=== PATIENT | female | born 1955 | race Caucasian/White ===

== ENCOUNTER 2020-04-03 15:36 | Outpatient (REF) | payer MEDICARE, SELFPAY | END 2020-04-03 15:37 | disposition home or self-care (01) | LOC: HO.LNP 15:36 | PROVIDERS: Visit Provider Internal Medicine | DX: Z20.822 Contact with and (suspected) exposure to COVID-19 (principal) | CPT/HCPCS: U0003 ==

== ENCOUNTER 2020-05-04 15:04 | Outpatient (REF) | payer MEDICARE, SELFPAY | END 2020-05-04 15:05 | disposition home or self-care (01) | LOC: HO.LNP 15:04 | PROVIDERS: PCP Internal Medicine; Visit Provider Surgery | DX: L98.9 Disorder of the skin and subcutaneous tissue, unspecified (principal) | CPT/HCPCS: 11421; 99202 ==

== ENCOUNTER 2020-05-05 13:07 | Outpatient (REF) | payer MEDICARE, SELFPAY | END 2020-05-05 13:08 | disposition home or self-care (01) | LOC: HO.LAB 13:07 | PROVIDERS: Visit Provider Surgery | DX: L98.9 Disorder of the skin and subcutaneous tissue, unspecified (principal) | CPT/HCPCS: 88305 ==

== ENCOUNTER → 2020-05-18 16:00 | Outpatient (BNVA) | payer MEDICARE, SELFPAY | PROVIDERS: PCP Internal Medicine; Visit Provider Surgery | DX: L98.9 Disorder of the skin and subcutaneous tissue, unspecified (principal) | CPT/HCPCS: 99212 ==

== ENCOUNTER 2022-01-18 12:20 | Outpatient (REF) | payer MEDICARE, SELFPAY ==
[2022-01-18 13:37] LABS: MANUAL DIFF FLAG NO
[2022-01-18 13:43] LABS: Basophils Absolute Auto 0.1 X10*3/uL (0.0-0.2); Basophils Percent Auto 1.3 % (0-2); Eosinophils Absolute Auto 0.1 X10*3/uL (0.0-0.4); Eosinophils Percent Auto 1.9 % (0-4); Hematocrit 42.4 % (37.0-47.0); Hemoglobin 13.5 g/dl (12.0-16.0); Imm Gran Abs Auto 0.01 X10*3/uL (0.00-0.03); Imm Gran Pct Auto 0.2 % (0.0-0.4); Lymphocytes Absolute Auto 1.8 X10*3/uL (1.2-4.9); Lymphocytes Percent Auto 34.3 % (20-40); Mean Corpuscular HGB Conc 31.8 g/dl (31.0-35.0); Mean Corpuscular Hemoglobin 28.8 pg (27.0-33.0); Mean Corpuscular Volume 90.4 fL (80.0-98.0); Mean Platelet Volume 9.7 fL (9.4-12.3); Monocytes Absolute Auto 0.4 X10*3/uL (0.1-1.2); Monocytes Percent Auto 7.8 % (2-11); Neutrophils Absolute Auto 2.9 x10*3/uL (2.0-8.3); Neutrophils Percent Auto 54.5 % (45-73); Platelet Count 277 X10*3/uL (160-400); Red Blood Count 4.69 X10*6/uL (4.20-5.50); Red Cell Distribution Width 13.2 % (11.0-16.0); White Blood Count 5.3 X10*3/uL (4.8-10.8)
[2022-01-18 14:49] LABS: Alanine Aminotransferase 10 U/L (0-31); Albumin Level 4.4 g/dL (3.5-5.0); Alkaline Phosphatase 99 U/L (39-117); Anion Gap 15 (12-20); Aspartate Amino Transferase 16 U/L (5-31); Bilirubin Total 0.5 mg/dL (0.0-1.0); Blood Urea Nitrogen 17 mg/dL (9-16); Calcium 9.8 mg/dL (8.4-10.2); Carbon Dioxide 28 mmol/L (22-29); Chloride 102 mmol/L (96-108); Cholesterol 222 mg/dL; Estimated Glomerular Filt Rate > 60; Glucose Fasting 90 mg/dL (60-99); HDL Cholesterol 78 mg/dL; LDL Cholesterol Calculated 133 mg/dl; Potassium 4.3 mmol/L (3.3-5.1); Sodium 141 mmol/L (135-145); Total Protein 7.3 g/dL (6.5-8.0); Triglycerides 59 mg/dL
[2022-01-18 14:58] LABS: Thyroid Stimulating Hormone 1.35 uIU/mL (0.32-4.0); Vitamin D 25-OH Total 20.6 ng/mL (>30)
[2022-01-21 21:35] LABS: Lyme Abs Screen <0.90 index
== END 2022-01-18 12:21 | disposition home or self-care (01) ==
LOC: HO.10HDL 12:20
PROVIDERS: Visit Provider Internal Medicine
DX: Z00.00 Encounter for general adult medical examination without abnormal findings (principal); E55.9 Vitamin D deficiency, unspecified
CPT/HCPCS: 36415; 80053; 80061; 82306; 84443; 85025; 86617; 86618

== ENCOUNTER 2022-03-20 16:31 | Outpatient (REF) | payer MEDICARE, SELFPAY ==
--- NOTE | ~2022-03-20 | XR_ITS ---
EXAMINATION: XR PELVIS CLINICAL INFORMATION: Pain. COMPARISON: No similar priors. TECHNIQUE: AP view of the pelvis. FINDINGS: No acute fractures or malalignment. The femoral heads are well-seated in their respective acetabula. There is symmetric increased sclerosis of the mid and lower thirds of the SI joints. Pubic symphysis is maintained. Calcifications in the left upper pelvis could represent fibroids. XR/XR pelvis 1-2V IMPRESSION: 1. No acute fractures or malalignment. 2. Symmetric increased sclerosis of the SI joints which could be seen in the setting of sacroiliitis. 3. Nonspecific calcifications in the pelvis could represent fibroids. Recommend correlation with a pelvic ultrasound.
[2022-03-20 16:48] LABS: MANUAL DIFF FLAG NO
[2022-03-20 17:03] LABS: Basophils Absolute Auto 0.1 X10*3/uL (0.0-0.2); Basophils Percent Auto 1.6 % (0-2); Eosinophils Absolute Auto 0.2 X10*3/uL (0.0-0.4); Eosinophils Percent Auto 3.4 % (0-4); Hematocrit 41.2 % (37.0-47.0); Hemoglobin 13.4 g/dl (12.0-16.0); Imm Gran Abs Auto 0.01 X10*3/uL (0.00-0.03); Imm Gran Pct Auto 0.2 % (0.0-0.4); Lymphocytes Absolute Auto 1.9 X10*3/uL (1.2-4.9); Lymphocytes Percent Auto 33.3 % (20-40); Mean Corpuscular HGB Conc 32.5 g/dl (31.0-35.0); Mean Corpuscular Hemoglobin 29.6 pg (27.0-33.0); Mean Corpuscular Volume 90.9 fL (80.0-98.0); Mean Platelet Volume 9.8 fL (9.4-12.3); Monocytes Absolute Auto 0.6 X10*3/uL (0.1-1.2); Monocytes Percent Auto 11.4 % (2-11); Neutrophils Absolute Auto 2.8 x10*3/uL (2.0-8.3); Neutrophils Percent Auto 50.1 % (45-73); Platelet Count 268 X10*3/uL (160-400); Red Blood Count 4.53 X10*6/uL (4.20-5.50); Red Cell Distribution Width 12.9 % (11.0-16.0); White Blood Count 5.6 X10*3/uL (4.8-10.8)
[2022-03-20 17:43] LABS: Anion Gap 11 (12-20); Blood Urea Nitrogen 20 mg/dL (9-16); C Reactive Protein 0.19 mg/dL (< or = 0.50); Calcium 9.6 mg/dL (8.4-10.2); Carbon Dioxide 29 mmol/L (22-29); Chloride 104 mmol/L (96-108); Estimated Glomerular Filt Rate > 60; Glucose Random 103 mg/dL (60-115); Potassium 4.7 mmol/L (3.3-5.1); Sodium 139 mmol/L (135-145)
[2022-03-20 17:56] LABS: Appearance Urine Turbid; Color Urine Yellow; Glucose Urine UA Negative (Negative); Leukocyte Esterase Urine Large (3+) (Negative); Nitrite Urine Negative (Negative); Specific Gravity - Urine 1.025 (1.005-1.025); UMIC TRIGGER UA YES; Urine Blood Moderate (2+) (Negative); Urine Ketones Negative (Negative); Urine Protein Trace mg/dL (Neg-Trace)
[2022-03-20 18:13] LABS: Bacteria Urine 4+ (None Seen); Hyaline Casts Urine 0-2 /LPF (0-2); Squamous Epithelial Cell Urine >20 /HPF (0-2); WBC Urine >50 /HPF (0-5)
== END 2022-03-20 16:32 | disposition home or self-care (01) ==
LOC: HO.XRAY 16:31
PROVIDERS: PCP Internal Medicine; Visit Provider Internal Medicine
DX: R10.9 Unspecified abdominal pain (principal); R10.2 Pelvic and perineal pain
CPT/HCPCS: 36415; 72170; 80048; 81001; 85025; 86140

== ENCOUNTER 2023-06-29 09:27 | Emergency (ER) | payer MEDICARE, SELFPAY ==
--- NOTE | ~2023-06-29 | XR_ITS ---
EXAMINATION: XR FOOT, LEFT CLINICAL INFORMATION: Pain. COMPARISON: None available. TECHNIQUE: AP, lateral, and oblique views of the left foot. FINDINGS: Nondisplaced comminuted fracture at the base of the fifth metatarsal. Moderate degenerative osteoarthrosis of the first MTP joint with mild hallux valgus deformity. Small plantar calcaneal spurs. Diffuse soft tissue swelling. XR/XR foot LT min 3V IMPRESSION: 1. Nondisplaced comminuted fracture at the base of the fifth metatarsal. 2. 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
--- NOTE | ~2023-06-29 | XR_ITS ---
EXAMINATION: XR ANKLE, RIGHT CLINICAL INFORMATION: Fall, swelling. COMPARISON: None available. TECHNIQUE: AP, lateral, and mortise views of the right ankle. FINDINGS: Soft tissue swelling adjacent to the lateral malleolus with an obliquely oriented mildly displaced distal fibular fracture. No additional fractures. No subluxation. Plantar calcaneal spurs. XR/XR ankle RT min 3V IMPRESSION: Mildly displaced distal fibular fracture with adjacent soft tissue swelling.
[2023-06-29 09:42] VITALS: BP 159/86; PULSE 55; RESP 18; TEMP 36.6; O2SAT 98; BMI 30.9
--- NOTE | 2023-06-29 11:55 | ED.LOWEXIN ---
HPI - Extremity Injury (Lower) General Chief Complaint: Extremity Injury, Lower Stated Complaint: R ankle pain Time Seen by Provider: 06/29/23 10:10 Source: patient, family and RN notes reviewed Mode of arrival: ambulatory Limitations: no limitations History of Present Illness HPI Narrative: This is a 68-year-old female, with no known medical problems, who presents emergency department accompanied by her sister with complaints of right ankle pain and left foot pain status post mechanical fall which occurred at 1:30 a.m. this morning. Patient states that she was walking outside of her house and tripped over a stone and rolled both of her ankles. She denies hitting her head or loss of consciousness. She was able to weightbear on both of her feet after the fall. She states that she has had increased pain and swelling in her right ankle and left foot. She took ibuprofen prior to arrival which provided her with good relief. She denies any headaches, dizziness, blurred vision chest pain, shortness on breath, abdominal pain, nausea, vomiting or diarrhea. She has not on blood thinners. No other complaints or concerns at this time. MD complaint: ankle injury and foot injury Onset (ago): hour(s) Place: home Severity: moderate Relieving factors: NSAID Exacerbating factors: weight bearing, movement and palpation Context: fall Associated symptoms: swelling and able to partially bear weight Other symptoms: none Treatments prior to arrival: NSAIDS Related Data Previous Rx's ?Medication ?Instructions ?Recorded acetaminophen 500 mg tablet 500 mg PO Q6H PRN pain #30 tabs 06/29/23 (Tylenol Extra Strength) ibuprofen 600 mg tablet 600 mg PO Q6H PRN pain #30 tabs 06/29/23 Allergies Allergy/AdvReac Type Severity Reaction Status Date / Time No Known Allergies Allergy Verified 06/29/23 09:46 Review of Systems Review of Systems: Yes all other systems are reviewed and are negative Constitutional: Constitutional: Reports as per [facility] Past Medical History Medical History Skin lesion of neck Surgical History History of removal of cyst Social History Social History Alcohol intake: never Advance Directives: No Advance Directives Information Provided: Yes Physical Exam Vital Signs: Vital Signs: Last Vital Signs Temp 98.6 F 06/29/23 15:08 Pulse 77 06/29/23 15:08 Resp 18 06/29/23 15:08 BP 170/68 H 06/29/23 15:08 Pulse Ox 98 06/29/23 15:05 O2 Del Method Room Air 06/29/23 15:05 BMI result Body Mass Index 30.9 Const: General: cooperative, comfortable and no acute distress Orientation/consciousness: patient oriented x3 Limitations: no limitations HEENT: Head: Yes normal to inspection, Yes normocephalic and Yes atraumatic Ears: hearing grossly normal bilaterally General nose exam: Normal external nose present Face and sinus: Yes normal facial exam Mouth: Normal oral and palatal mucosa present, oropharynx normal and moist mucous membranes Throat: Yes posterior oropharynx normal Eyes: General: appearance normal, both eyes and all related structures Eyelids: Yes eyelids normal Conjunctivae: conjunctivae normal Sclerae: sclerae normal Pupils: Equal, round and reactive pupils present EOM: EOMs intact bilaterally Neck: Neck: Yes normal visual inspection, Yes full ROM and Yes no lymphadenopathy Lymphatic: no lymphadenopathy noted Chest: Chest palpation & inspection: normal inspection of the chest Resp: Effort & Inspection: normal respiratory effort and able to speak in complete sentences Auscultation: clear to auscultation bilaterally, no crackles, no rales, no rhonchi and no wheezes Cardio: Rate: regular rate Rhythm: regular rhythm Heart sounds: S1 normal heart sound present and S2 normal heart sound present GI: Inspection: Yes normal to inspection Skin: General skin exam: no rashes or lesions noted Trauma: no lacerations or abrasions Wounds: no wounds Neuro: General: patient oriented x3 and moves all extremities Cranial nerves: Yes Equal, round and reactive pupils present Extrem: Other: Right ankle lateral malleolus with moderate edema and tenderness to palpation. Full range of motion of the right ankle without difficulty. Strong DP pulse. Left lateral ankle with superficial abrasion noted, left dorsum of the foot with moderate edema and ecchymosis seen, with tenderness palpation along the left 5th metatarsal head. Strong DP pulse General: Yes normal to inspection Right upper extremity: normal to inspection Left upper extremity: normal to inspection Right lower extremity: normal to inspection Left lower extremity: normal to inspection Course Reevaluation(s) Reevaluation #1: X-ray revealing mildly displaced distal fibular fracture with adjacent soft tissue swelling. Pending left foot x-ray at this time. Time: 11:59 Reevaluation #2: Left foot x-ray returns revealing a left 5th nondisplaced comminuted fracture. Case discussed with orthopedic PA, Ivonne Veronica, who recommends postoperative shoe on the left as well as splinting on the right. Patient should be nonweightbearing on the right. I discussed these findings with patient. I advised patient that given ambulation status is going to be severely compromised as she has fractures in her left foot as well as her right ankle. I discussed at length that patient should stay overnight to be medically evaluated by the physical therapist in the morning to see if she qualifies for out home services and or acute rehab. Patient adamantly refuses, states that she needs to get home to her job as well as take care of her dog who just had surgery last week. I discussed that she can not be weight-bearing on the right. She was given crutches in the emergency department and appears to be stable. I given patient return precautions. She will follow-up with orthopedics outpatient, advised to call tomorrow to make an appointment. Patient stable for discharge. Medical Decision Making Medical Decision Making MDM Narrative: This is a 68-year-old female, with no known medical problems, who presents emergency department complaints of right ankle and left foot pain status post mechanical fall which occurred at 1:30 a.m. this morning. Patient had no head strike or LOC. She has not on blood thinners. She was able to weightbear on both of her ankles however states that she has had increased pain since. Patient has tenderness palpation along the right lateral malleolus as well as left 5th metatarsal head. Differential diagnoses include fracture, sprain, strain, contusion. Plan: X-rays, patient declines pain management at this time. Differential Diagnosis Differential Diagnoses: The differential diagnosis associated with the presentation includes See above Admission/Observation Consideration of admission/observation: Escalation of care including admission/observation considered Escalation of care including admission/observation considered however given workup today not warranted at this time. Consult Healthcare Provider Management of the patient was discussed with: Stucco Mason Ivonne Veronica, orthopedic PA Radiology Impression Discussion of test interpretation with radiology: I have reviewed the radiologist's reading. Radiologist Impression: EXAMINATION: XR ANKLE, RIGHT CLINICAL INFORMATION: Fall, swelling. COMPARISON: None available. TECHNIQUE: AP, lateral, and mortise views of the right ankle. FINDINGS: Soft tissue swelling adjacent to the lateral malleolus with an obliquely oriented mildly displaced distal fibular fracture. No additional fractures. No subluxation. Plantar calcaneal spurs. XR/XR ankle RT min 3V IMPRESSION: Mildly displaced distal fibular fracture with adjacent soft tissue swelling. Dictated By: Radha Krishnan External Record Review External record reviewed: Inpatient record, Office record, Outpatient record, Prior outpatient labs, Prior outpatient radiology, Primary care record and Outside ED record Procedures Orthopedic Splinting/Casting Injury #1: Side: right Lower Extremity Injury Location: lower leg and ankle Lower Extremity Immobilizer: posterior splint Other Orthopedic Equipment: crutches Injury #2: Side: left Lower Extremity Injury Location: foot Lower Extremity Immobilizer: post-op shoe Discharge Plan Discharge Clinical Impression: Fracture of fifth metatarsal bone, Fracture of right fibula Patient Disposition: Home, Self-Care Instructions: Ankle Fracture (ED), Crutch Instructions (ED), Foot Fracture in Adults (ED) Additional Instructions: Your seen in the emergency department after a fall. Your right ankle is fractured. Your left 5th metatarsal is also broken. You need to stay in your orthopedic splint until you follow-up with Orthopedics. Do not get splint wet. You can not weightbear on her right foot and leg. Your left foot is also fractured, stay in the postoperative shoe. You may weightbear on her left foot. Alternate between ibuprofen and Tylenol as needed for pain. If any new or worsening symptoms occur including but not limited to chest pain, shortness of breath, worsening pain, swelling, please return for re-evaluation. Prescriptions: New ibuprofen 600 mg tablet 600 mg PO Q6H PRN (Reason: pain) Qty: 30 0RF acetaminophen [Tylenol Extra Strength] 500 mg tablet 500 mg PO Q6H PRN (Reason: pain) Qty: 30 0RF [place] [facility] [place] [facility] [place] Group] Interventions: ED Discharge Assessment Last Done: 06/29/23 15:08 Discharge Date/Time: 06/29/23 15:37 Print Language: Citizen Of [place]
[2023-06-29 15:05] VITALS: BP 170/68; PULSE 77; RESP 18; TEMP 37; O2SAT 98
[2023-06-29 15:08] VITALS: BP 170/68; PULSE 77; RESP 18; TEMP 37
== END 2023-06-29 15:37 | disposition home or self-care (01) ==
PROVIDERS: Emergency Provider Student in an Organized Health Care Education/Training Program; PCP Internal Medicine
DX: S92.352A Displaced fracture of fifth metatarsal bone, left foot, initial encounter for closed fracture (principal); S82.401A Unspecified fracture of shaft of right fibula, initial encounter for closed fracture; M25.571 Pain in right ankle and joints of right foot; M79.672 Pain in left foot; W01.10XA Fall on same level from slipping, tripping and stumbling with subsequent striking against unspecified object, initial encounter; Y93.9 Activity, unspecified; Y92.9 Unspecified place or not applicable; Y99.8 Other external cause status
CPT/HCPCS: 73610; 73630; 99283; 99284

== ENCOUNTER 2023-09-23 13:03 | Emergency (ER) | payer MEDICARE, SELFPAY ==
--- NOTE | ~2023-09-23 | XR_ITS ---
EXAMINATION: XR HAND, LEFT CLINICAL INFORMATION: Third digit injury. Cutting middle finger on wu trimmers. Pain. COMPARISON: None available. TECHNIQUE: PA, lateral, and oblique views of the left hand. FINDINGS: Bones are osteopenic. No fracture or malalignment. Moderate osteoarthritis the first CMC and triscaphe joints. Minimal osteoarthritis in the interphalangeal joints. There is a soft tissue injury at the long finger around the distal phalanx. No subcutaneous gas. No radiodense foreign bodies. No associated osseous injuries. XR/XR hand LT 2V IMPRESSION: Soft tissue injury at the long finger distal phalanx. No associated osseous injuries. No radiodense foreign bodies.
[2023-09-23 13:11] VITALS: BP 153/78; PULSE 87; RESP 18; TEMP 36.8; O2SAT 98; BMI 30.6
--- NOTE | 2023-09-23 13:11 | ED_ITS ---
HPI - General Adult General Chief complaint: Wound/Laceration Stated complaint: L finger lac Time Seen by Provider: 09/23/23 14:37 Related Data Previous Rx's ?Medication ?Instructions ?Recorded acetaminophen 500 mg tablet 500 mg PO Q6H PRN pain #30 tabs 06/29/23 (Tylenol Extra Strength) ibuprofen 600 mg tablet 600 mg PO Q6H PRN pain #30 tabs 06/29/23 Allergies Allergy/AdvReac Type Severity Reaction Status Date / Time No Known Allergies Allergy Verified 09/23/23 13:14 [facility] Past Medical History Medical History Skin lesion of neck Surgical History History of removal of cyst Social History Social History Alcohol intake: never Advance Directives: No Advance Directives Information Provided: No Do you have a plan to hurt others: No Plan Physical Exam ED Vital Signs: Vital Signs - 24 hr 09/23/23 13:11 09/23/23 16:25 09/23/23 16:41 Temperature 98.2 F 98.3 F 98.3 F Pulse Rate 87 80 80 Respiratory Rate 18 20 20 Blood Pressure 153/78 H 148/76 H 148/76 H Pulse Oximetry 98 98 98 Oxygen Delivery Method Room Air Room Air Room Air BMI result Body Mass Index 30.6 Course Course Course Narrative: This is a rapid medical exam performed by Marcio West NP: Additional HPI, ROS, PE not included below will be deferred to primary provider. Patient is a 68-year-old right hand dominant female presenting to the ED with complaint of laceration to left middle finger. Accidentally cut self with hedge clippers [employer]. V-shaped laceration to distal tip of left 3rd finger on palmar surface, no nail involvement. Patient is going to call Dr. Pringle's office to confirm last Tdap. Plan: f/u on Tdap, will need repair Medications Administered Discontinued Medications Generic Name Dose Route Start Last Admin Trade Name Freq PRN Reason Stop Dose Admin Bacitracin 1 appl 09/23/23 15:51 09/23/23 16:28 Bacitracin Oint 0.9 Gm Packet TOPICAL 09/23/23 15:52 1 appl ONCE ONE Administration Protocol Diphtheria/Tetanus/Acell Pertussis 0.5 ml 09/23/23 14:43 09/23/23 14:58 Diphth,Pertus(Acell),Tet Adult 0.5 Ml Syringe IM 09/23/23 14:44 0.5 ml .ONCE ONE Administration Discharge Plan Discharge Clinical Impression: Abrasion Patient Disposition: Home, Self-Care Instructions: Abrasion (ED) Additional Instructions: You were seen and evaluated in the emergency room. Your wound was cleaned and repaired with steri-strips. Please keep your wound dry for 24 hours. After 24 hours, you may wash your wound daily with mild soap and water. Please be very gentle when cleaning. After cleaning, please apply Bacitracin (or any triple antibiotic ointment such as Neosporin). Please do this 2-3x per day. When your steri-strips begin to come off, please begin to apply a normal bandage over your wound. Please allow your steri-strips to come off naturally. Please follow-up with your primary care doctor in the next 5-7 days. ? Please return to the emergency room if you develop any new injuries or concerns. Prescriptions: No Action ibuprofen 600 mg tablet 600 mg PO Q6H PRN (Reason: pain) Qty: 30 0RF acetaminophen [Tylenol Extra Strength] 500 mg tablet 500 mg PO Q6H PRN (Reason: pain) Qty: 30 0RF Interventions: ED Discharge Assessment Last Done: 09/23/23 16:41 Discharge Date/Time: 09/23/23 16:41 Print Language: Serbian
--- NOTE | 2023-09-23 14:44 | ED_ITS ---
HPI - General Adult General Chief complaint: Wound/Laceration Stated complaint: L finger lac Time Seen by Provider: 09/23/23 14:37 Source: patient Mode of arrival: ambulatory Limitations: no limitations History of Present Illness HPI narrative: This is a 68-year-old woman with no known medical problems who presents for evaluation of finger injury. Patient reports that she was using hedge clippers prior to arrival and states that she accidentally after got a cut on a stick/branch or the clipper itself. She states that her last tetanus shot was in 2018. She states it was bleeding quite a bit initially, but states that the bleeding has slowed down. She states no other injuries or complaints. Related Data Previous Rx's ?Medication ?Instructions ?Recorded acetaminophen 500 mg tablet 500 mg PO Q6H PRN pain #30 tabs 06/29/23 (Tylenol Extra Strength) ibuprofen 600 mg tablet 600 mg PO Q6H PRN pain #30 tabs 06/29/23 Allergies Allergy/AdvReac Type Severity Reaction Status Date / Time No Known Allergies Allergy Verified 09/23/23 13:14 Review of Systems Review of Systems: ROS as per HPI [facility] Past Medical History Medical History Skin lesion of neck Surgical History History of removal of cyst Social History Social History Alcohol intake: never Advance Directives: No Advance Directives Information Provided: No Do you have a plan to hurt others: No Plan Physical Exam ED Vital Signs: Vital Signs - 24 hr 09/23/23 13:11 09/23/23 16:25 09/23/23 16:41 Temperature 98.2 F 98.3 F 98.3 F Pulse Rate 87 80 80 Respiratory Rate 18 20 20 Blood Pressure 153/78 H 148/76 H 148/76 H Pulse Oximetry 98 98 98 Oxygen Delivery Method Room Air Room Air Room Air BMI result Body Mass Index 30.6 Gen: NAD, AOx3 HEENT: NCAT, EOMI, normal conjunctiva CV: RRR, 2+ bilateral radial pulses Pulm: CTAB, no increased work of breathing GI: Soft, NTND, no rebound, guarding or rigidity MSK: Intact motor function to left upper extremity radial/ulnar/median/anterior interosseous nerve, superficial irregular hemostatic abrasion to the palmar aspect of the distal left middle finger Neuro: Grossly non focal, sensation intact to light touch to bilateral upper extremity dermatomes C6-C8 Medications Administered Discontinued Medications Generic Name Dose Route Start Last Admin Trade Name Moiseq PRN Reason Stop Dose Admin Bacitracin 1 appl 09/23/23 15:51 09/23/23 16:28 Bacitracin Oint 0.9 Gm Packet TOPICAL 09/23/23 15:52 1 appl ONCE ONE Administration Protocol Diphtheria/Tetanus/Acell Pertussis 0.5 ml 09/23/23 14:43 09/23/23 14:58 Diphth,Pertus(Acell),Tet Adult 0.5 Ml Syringe IM 09/23/23 14:44 0.5 ml .ONCE ONE Administration Procedures Laceration Laceration 1: Site: hand Side (If applicable): left Size (cm): 1 Description: irregular Depth: simple, single layer Pre-repair: irrigated extensively Technique: other (steri strips x4) Medical Decision Making Medical Decision Making MDM Narrative: Differential diagnosis includes, but is not limited to abrasion, laceration, fracture, retained foreign body, contusion. Patient is afebrile and hemodynamically stable on room air. Exam is benign and reassuring. The affected extremity is neurovascularly intact. Patient's wound is hemostatic. Her wound is cleansed with hydrogen peroxide and saline. Considered use of Dermabond for closure, but wound is appropriate for closure with Steri-Strips which are applied. Bacitracin topical was applied by RN following application of Steri-Strips. Diagnostic imaging studies are unremarkable for any acute findings. On re-examination, patient is well-appearing and in no acute distress.?There is no indication for further emergent evaluation in this otherwise well-appearing patient as above. I discussed appropriate ongoing wound care at home. ?Patient is provided written and verbal instructions, educational materials, recommendations for outpatient follow-up, strict return precautions and teach back is performed. ?Patient states understanding and agreement with plan of care. ?Patient is discharged home in stable and improved condition. Admission/Observation Consideration of admission/observation: Escalation of care including admission/observation considered Independent Interpretation I performed an independent interpretation of an: Plain X-Ray Interpretation: X-ray does not demonstrate any acute fracture or foreign body Radiology Impression Discussion of test interpretation with radiology: I have reviewed the radiologist's reading. Radiologist Impression: IMPRESSION: Soft tissue injury at the long finger distal phalanx. No associated osseous injuries. No radiodense foreign bodies. Dictated By: Polo Webb MD Signed By: <Electronically signed by Polo Webb MD in OV> 09/23/23 0097 Discharge Plan Discharge Clinical Impression: Abrasion Patient Disposition: Home, Self-Care Instructions: Abrasion (ED) Additional Instructions: You were seen and evaluated in the emergency room. Your wound was cleaned and repaired with steri-strips. Please keep your wound dry for 24 hours. After 24 hours, you may wash your wound daily with mild soap and water. Please be very gentle when cleaning. After cleaning, please apply Bacitracin (or any triple antibiotic ointment such as Neosporin). Please do this 2-3x per day. When your steri-strips begin to come off, please begin to apply a normal bandage over your wound. Please allow your steri-strips to come off naturally. Please follow-up with your primary care doctor in the next 5-7 days. ? Please return to the emergency room if you develop any new injuries or concerns. Prescriptions: No Action ibuprofen 600 mg tablet 600 mg PO Q6H PRN (Reason: pain) Qty: 30 0RF acetaminophen [Tylenol Extra Strength] 500 mg tablet 500 mg PO Q6H PRN (Reason: pain) Qty: 30 0RF Interventions: ED Discharge Assessment Last Done: 09/23/23 16:41 Discharge Date/Time: 09/23/23 16:41 Print Language: Citizen Of [place]
[2023-09-23] MEDS: Diphth,Pertus(ACell),Tet Adult 0.5 ML SYRINGE IM (14:58)
[2023-09-23 16:25] VITALS: BP 148/76; PULSE 80; RESP 20; TEMP 36.8; O2SAT 98
[2023-09-23] MEDS: Bacitracin Oint 0.9 GM PACKET 1 APPL TOPICAL (16:28)
--- NOTE | 2023-09-23 16:40 | PC.NURSE ---
pts laceration was closed with steri strips and bacitracin dsd placed. no active bleeding noted, plan for discharge
[2023-09-23 16:41] VITALS: BP 148/76; PULSE 80; RESP 20; TEMP 36.8; O2SAT 98
== END 2023-09-23 16:41 | disposition home or self-care (01) ==
PROVIDERS: Emergency Provider Emergency Medicine; PCP Internal Medicine
DX: S61.213A Laceration without foreign body of left middle finger without damage to nail, initial encounter (principal); W45.8XXA Other foreign body or object entering through skin, initial encounter; Y93.9 Activity, unspecified; Y92.9 Unspecified place or not applicable; Y99.9 Unspecified external cause status; Z23 Encounter for immunization
CPT/HCPCS: 73120; 90471; 90715; 99282; 99284

== ENCOUNTER → 2023-10-17 08:30 | Outpatient (BNV) | payer MEDICARE, SELFPAY | PROVIDERS: PCP Internal Medicine; Visit Provider Radiology Diagnostic Radiology | DX: Z12.31 Encounter for screening mammogram for malignant neoplasm of breast (principal) | CPT/HCPCS: 77063; 77067 ==

== ENCOUNTER 2023-10-17 08:31 | Outpatient (REF) | payer MEDICARE, SELFPAY ==
--- NOTE | ~2023-10-17 | MM_ITS ---
EXAMINATION: BONE DENSITOMETRY CLINICAL INDICATION: Asymptomatic menopausal state. COMPARISON: Previous BD dated 09/16/2017 and baseline BD dated 07/02/2007. TECHNIQUE: Using a [employer] DXA System (software version: 13.1) manufactured by [facility], dual-energy x-ray absorptiometry was performed of the lumbar spine and left hip. The images are of good technical quality. Summary results are attached. FINDINGS: LEFT FEMUR, NECK: Current: BMD 0.867 g/cm2, Z-score -0.1, T-score -1.2, osteopenia. Prior: BMD 0.927 g/cm2. Baseline: BMD 1.008 g/cm2. LEFT FEMUR, TOTAL: Current: BMD 0.926 g/cm2, Z-score 0.2, T-score -0.6, normal, 5.3% decrease from previous, 8.4% decrease from baseline (<5% change is not significant). Prior: BMD 0.978 g/cm2. Baseline: BMD 1.011 g/cm2. AP SPINE L1-L4: Current: BMD 0.984 g/cm2, Z-score -0.8, T-score -1.6, osteopenia, 0.2% increase from previous, 8.6% decrease from baseline (<5% change is not significant). Prior: BMD 0.982 g/cm2. Baseline: BMD 1.076 g/cm2. IDENTIFIED RISK FACTORS: Menopause, fracture. HISTORY OF FRACTURE: Wrist. Other. MEDICATIONS: Calcium supplements or multivitamin, vitamin D. MM/XR DEXA axial skeleton IMPRESSION: 1. DIAGNOSIS: Osteopenia based on the lowest T-score value of -1.6 in the lumbar spine applying World Health Organization criteria. 2. 10-YEAR FRACTURE RISK PREDICTION, FRAX: Major osteoporotic fracture (clinical spine, forearm, hip or shoulder) 13.8%. Hip fracture 1.6%. 3. Treatment Recommendations: NOF guidelines recommend consideration for treatment in postmenopausal women and men age 50 and older presenting with the following: -A hip or vertebral (clinical or morphometric) fracture. -T-score less than or equal to -2.5 at the femoral neck or spine after appropriate evaluation to exclude secondary causes. -Low bone mass at the hip or spine and a 10-year fracture probability by FRAX of greater than or equal to 3% for hip fracture or greater than or equal to 20% for major osteoporotic fracture based on the [place] adapted WHO algorithm. 4. Other Recommendations: All treatment decisions require clinical judgment and consideration of individual patient factors, including patient preferences, comorbidities, previous drug use, risk factors not captured in the FRAX model (e.g. frailty, falls, vitamin D deficiency, increased bone turnover, interval significant decline in bone density) and possible under or overestimation of fracture risk by FRAX. Additional medical evaluation for secondary cause of low bone mineral density may be appropriate. FUTURE SCAN RECOMMENDATION: People with diagnosed cases of osteoporosis or at high risk for fracture should have regular bone mineral density tests. For patients eligible for Medicare, routine testing is allowed once every 2 years. The testing frequency can be increased to one year for patients who have rapidly progressing disease, those who are receiving or discontinuing medical therapy to restore bone mass, or have additional risk factors.
--- NOTE | ~2023-10-17 | MM_ITS ---
EXAMINATION: MM SCREENING DIGITAL BREAST TOMOSYNTHESIS, BILATERAL CLINICAL INFORMATION: Screening. Asymptomatic. COMPARISON: Mammography: There are no prior mammograms for comparison. The patient reports her last mammogram was over 10 years ago. TECHNIQUE: Digital breast tomosynthesis is performed in both the craniocaudal and mediolateral oblique views along with computer-aided detection (CAD). Synthesized 2D images are generated from the tomosynthesis. FINDINGS: There are scattered areas of fibroglandular density (ACR BI-RADS breast composition Category b). There are no significant masses, abnormal calcifications, or other abnormalities. MM/MM tomosynthesis screening BI IMPRESSION: No mammographic evidence of malignancy. ASSESSMENT: BI-RADS BI-RADS 1 - Negative RECOMMENDATION: Routine annual mammography screening. 1 year F/U This examination should not preclude the clinical evaluation of a suspicious palpable abnormality. This patient's information was entered into a reminder system with a target due date for their next mammogram.
[2023-10-17 09:33] LABS: MANUAL DIFF FLAG NO
[2023-10-17 10:16] LABS: Basophils Absolute Auto 0.1 X10*3/uL (0.0-0.2); Basophils Percent Auto 1.2 % (0-2); Eosinophils Absolute Auto 0.2 X10*3/uL (0.0-0.4); Eosinophils Percent Auto 4.3 % (0-4); Hematocrit 40.7 % (37.0-47.0); Hemoglobin 13.4 g/dl (12.0-16.0); Imm Gran Abs Auto 0.02 X10*3/uL (0.00-0.03); Imm Gran Pct Auto 0.4 % (0.0-0.4); Lymphocytes Absolute Auto 1.5 X10*3/uL (1.2-4.9); Lymphocytes Percent Auto 29.6 % (20-40); Mean Corpuscular HGB Conc 32.9 g/dl (31.0-35.0); Mean Corpuscular Volume 91.1 fL (80.0-98.0); Mean Platelet Volume 10.5 fL (9.4-12.3); Monocytes Absolute Auto 0.5 X10*3/uL (0.1-1.2); Monocytes Percent Auto 10.1 % (2-11); Neutrophils Absolute Auto 2.7 x10*3/uL (2.0-8.3); Neutrophils Percent Auto 54.4 % (45-73); Platelet Count 281 X10*3/uL (160-400); Red Blood Count 4.47 X10*6/uL (4.20-5.50); Red Cell Distribution Width 13.6 % (11.0-16.0); White Blood Count 4.9 X10*3/uL (4.8-10.8)
[2023-10-17 11:02] LABS: Alanine Aminotransferase 10 U/L (0-31); Albumin Level 4.3 g/dL (3.5-5.0); Alkaline Phosphatase 119 U/L (39-117); Anion Gap 12 (12-20); Aspartate Amino Transferase 15 U/L (5-31); Bilirubin Total 0.6 mg/dL (0.0-1.0); Blood Urea Nitrogen 15 mg/dL (9-16); Calcium 9.3 mg/dL (8.4-10.2); Carbon Dioxide 28 mmol/L (22-29); Chloride 105 mmol/L (96-108); Cholesterol 209 mg/dL (<200); Estimated Glomerular Filt Rate > 60; Glucose Random 98 mg/dL (60-115); HDL Cholesterol 66 mg/dL (>40); LDL Cholesterol Calculated 124 mg/dL (<100); Potassium 4.2 mmol/L (3.3-5.1); Sodium 141 mmol/L (135-145); Total Protein 7.4 g/dL (6.5-8.0); Triglycerides 98 mg/dL (<150)
[2023-10-17 11:22] LABS: Thyroid Stimulating Hormone 1.85 uIU/mL (0.32-4.0); Vitamin D 25-OH Total 34.7 ng/mL (>30)
== END 2023-10-17 08:32 | disposition home or self-care (01) ==
LOC: HO.MAMMO 08:31
PROVIDERS: PCP Internal Medicine; Visit Provider Internal Medicine
DX: Z12.31 Encounter for screening mammogram for malignant neoplasm of breast (principal); Z13.820 Encounter for screening for osteoporosis; Z78.0 Asymptomatic menopausal state; M85.89 Other specified disorders of bone density and structure, multiple sites; E78.00 Pure hypercholesterolemia, unspecified; E55.9 Vitamin D deficiency, unspecified; Z79.899 Other long term (current) drug therapy
CPT/HCPCS: 36415; 77063; 77067; 77080; 80053; 80061; 82306; 84443; 85025

== ENCOUNTER 2023-10-21 14:02 | Outpatient (REF) | payer MEDICARE, SELFPAY ==
--- NOTE | ~2023-10-21 | XR_ITS ---
EXAMINATION: XR CHEST CLINICAL INFORMATION: Right lung base lung crackles. COMPARISON: None available. TECHNIQUE: Frontal and lateral views of the chest were obtained. FINDINGS: The heart, great vessels, pulmonary vasculature and mediastinum are normal. The lungs show no focal infiltrate, effusion or pneumothorax. There is a mild bilateral interstitial pattern, most pronounced laterally within the right lung. No pulmonary vascular congestion or overt pulmonary edema are seen. There is no acute osseous abnormality. XR/XR chest 2V IMPRESSION: 1. No focal infiltrate or congestive heart failure is seen. 2. There is a mild bilateral peripheral interstitial pattern, suspicious for chronic interstitial lung disease. Recommend clinical correlation and comparison with outside chest radiographs, if available. This could be more fully evaluated with CT, if clinically indicated.
== END 2023-10-21 14:03 | disposition home or self-care (01) ==
LOC: HO.XRAY 14:02
PROVIDERS: PCP Internal Medicine; Visit Provider Internal Medicine
DX: R09.89 Other specified symptoms and signs involving the circulatory and respiratory systems (principal)
CPT/HCPCS: 71046

== ENCOUNTER 2024-01-16 14:56 | Outpatient (AMB) | payer MEDICARE, SELFPAY ==
[2024-01-16 15:05] VITALS: BP 142/70; PULSE 60; O2SAT 98; BMI 33.6
--- NOTE | 2024-01-16 15:05 | A.OFFVIS_ITS ---
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 The patient is a 68 year woman with abnormal chest x-ray sent for further evaluation. The patient doing well. She did have an episode in her life when she worked we had poor ventilation. While she was working that she did have episodes of cough. Denied any signifi cant shortness of breath. Although she is not very active. She no longer works there. The patient ultimately and beginning of the year had a fall injury fracturing her right ankle and subsequently being at work about 4 months. She is now back to work but working a different place. Denies any exposure to any fumes or toxins right now. She is a nonsmoker and actually never smoke. She denied any hobbies working with any in organic dust such as silica. She did not work with any organic matter and does not have any pets at this time. She denies any mold in her home. The patient has never used any inhalers. She went to see her primary care doctor who appreciated some crackles on exam. At that point she did have a chest x-ray. I personally reviewed the x-ray demonstrating some reticular changes suggestive of interstitial lung disease. On exam she does have some fine crackles bilaterally consistent with interstitial lung disease. But clinically the patient is doing well. We did talk about further workup including pulmonary function studies and a CT scan of the chest. She is concerned about potential cost about these test. I did try to explain to her that we can try to do 1 at a time if that is easier. We also typically do blood work but we can wait to see the results of the test to see if any concerns for a progressive condition is present. Therefore, patient will undergo pulmonary function studies and hopefully a CT scan if not an x-ray will follow-up in a few months. [facility] Medical History (Updated 01/18/24 @ 22:03 by Billy Zacarias MD) Dyspnea Standard chest x-ray abnormal ILD (interstitial lung disease) Skin lesion of neck Surgical History History of removal of cyst Social History Alcohol intake: never Review of Systems Const Denies fever(s) Eyes Denies change in vision ENT Reports no additional complaints Card Denies chest pain and Reports dyspnea on exertion Resp Reports dyspnea on exertion and Denies wheezing GI Reports no additional complaints Musc Reports no additional complaints Skin/Breast Denies rash Neuro Reports no additional complaints Johann/Lymph Reports no additional complaints Aller/Immun Denies wheezing Physical Exam Vital Signs: Last Vital Signs Pulse 60 01/16/24 15:05 BP 142/70 H 01/16/24 15:05 Pulse Ox 98 01/16/24 15:05 Oxygen Delivery Method Room Air 01/16/24 15:05 BMI result Body Mass Index 33.6 Const General: comfortable HEENT Head: Yes atraumatic Neck Neck: Yes supple Chest Chest palpation & inspection: normal inspection of the chest Resp Effort & Inspection: normal respiratory effort Auscultation: rales bilateral Cardio Heart sounds: S1 normal heart sound present and S2 normal heart sound present GI Palpation (GI): Soft to palpation Skin General skin exam: no rashes or lesions noted Extrem General: Yes no clubbing, cyanosis or edema Results Reviewed Results Reviewed: personally reviewed CXR with reticular changes Assessment & Plan Assessment & Plan (1) ILD (interstitial lung disease): Code(s): J84.9 - Interstitial pulmonary disease, unspecified Category: Medical (2) Standard chest x-ray abnormal: Code(s): R93.89 - Abnormal findings on diagnostic imaging of other specified body structures Category: Medical (3) Dyspnea: Code(s): R06.00 - Dyspnea, unspecified Category: Medical Qualifiers: Dyspnea type: dyspnea on exertion Qualified Code(s): R06.09 - Other forms of dyspnea Plan CT chest PFTs Consider bloodwork to assess for etiologies for ILD/pneumonitis. F/U 6-8 weeks Orders: Orders CT chest wo IV con Today J84.9 - Interstitial pulmonary disease, unspecified PFT pulmonary function test Today J84.9 - Interstitial pulmonary disease, unspecified Coding Level of Care Code New Pt Level 4 (67217) Diagnoses ILD (interstitial lung disease) J84.9 Standard chest x-ray abnormal R93.89 Dyspnea on exertion R06.09 Dyspnea type: dyspnea on exertion Time Spent (min) 40
== END 2024-01-16 15:43 | disposition home or self-care (01) ==
PROVIDERS: PCP Internal Medicine; Visit Provider Hospitalist
DX: J84.9 Interstitial pulmonary disease, unspecified (principal); R93.89 Abnormal findings on diagnostic imaging of other specified body structures; R06.09 Other forms of dyspnea
CPT/HCPCS: 99204

== ENCOUNTER → 2024-01-16 14:56 | Outpatient (BNVA) | payer MEDICARE, SELFPAY | PROVIDERS: PCP Internal Medicine; Visit Provider Hospitalist | DX: J84.9 Interstitial pulmonary disease, unspecified (principal); R93.89 Abnormal findings on diagnostic imaging of other specified body structures; R06.09 Other forms of dyspnea | CPT/HCPCS: 99202 ==

== ENCOUNTER 2024-03-02 14:59 | Outpatient (REF) | payer MEDICARE, SELFPAY ==
--- NOTE | 2024-03-02 15:01 | PFT_ITS ---
Indication: Abnormal imaging Spirometry [FEV1 to FVC 89%; FEV1 1.41 L; FVC 1.5 L. bronchodilators were not used. Maximum voluntary ventilation 80% predicted. T note the patient was having hard time with the test.] Lung Volumes [Total lung capacity 49% predicted; expiratory reserve volume 95% predicted] Diffusion Capacity [DLCO 59% predicted. To note it does correct to 105% when corrected for the alveolar volume.] Comparisons [None] Interpretation [No obstructive ventilatory defects. Bronchodilators were not used. The patient however has a restrictive ventilatory defect consistent with moderate restrictive lung disease. Could be secondary to underlying interstitial lung disease although neuromuscular conditions can not be ruled out. Diffusing capacity is also moderately decreased, although, it does correct to normal when corrected for the alveolar volume. Clinical correlation warranted.] MTDD
== END 2024-03-02 15:00 | disposition home or self-care (01) ==
LOC: HO.RESP 14:59
PROVIDERS: PCP Internal Medicine; Visit Provider Hospitalist
DX: J84.9 Interstitial pulmonary disease, unspecified (principal)
CPT/HCPCS: 94010; 94640; 94727; 94729

== ENCOUNTER → 2024-03-02 15:01 | Outpatient (BNV) | payer MEDICARE, SELFPAY | PROVIDERS: PCP Internal Medicine; Visit Provider Hospitalist | DX: J84.9 Interstitial pulmonary disease, unspecified (principal) | CPT/HCPCS: 94060; 94727; 94729 ==

== ENCOUNTER 2024-03-05 15:30 | Outpatient (REF) | payer MEDICARE, SELFPAY | END 2024-03-05 15:31 | disposition home or self-care (01) | LOC: HO.CT 15:30 | PROVIDERS: PCP Internal Medicine; Visit Provider Hospitalist | DX: J84.9 Interstitial pulmonary disease, unspecified (principal) | CPT/HCPCS: 71250 ==

== ENCOUNTER 2024-03-12 15:45 | Outpatient (REF) | payer MEDICARE, SELFPAY ==
[2024-03-12 17:49] LABS: Erythrocyte Sedimentation Rate 17 MM/HR (0-20)
[2024-03-16 06:53] LABS: Scleroderma 70 Antibody <1.0 NEG AI (<1.0 NEG)
[2024-03-16 07:48] LABS: Anti Nuclear Antibody Screen NEGATIVE (NEGATIVE)
[2024-03-19 11:33] LABS: Cyclic Citrullinated Peptide <16 UNITS
[2024-03-20 14:48] LABS: Asperg fumigatus Precip Abs NEGATIVE (NEGATIVE); Micropoly faeni Abs NEGATIVE (NEGATIVE); Pigeon serum Abs NEGATIVE (NEGATIVE); Saccharo pora viridis Abs NEGATIVE (NEGATIVE); Thermo candidus Abs NEGATIVE (NEGATIVE); Thermoa vulgaris #1 NEGATIVE (NEGATIVE)
== END 2024-03-12 15:46 | disposition home or self-care (01) ==
LOC: HO.LAB 15:45
PROVIDERS: PCP Internal Medicine; Visit Provider Hospitalist
DX: J84.9 Interstitial pulmonary disease, unspecified (principal); R91.8 Other nonspecific abnormal finding of lung field; R06.09 Other forms of dyspnea; J84.10 Pulmonary fibrosis, unspecified
CPT/HCPCS: 36415; 85652; 86038; 86200; 86235; 86331; 86606; 86609; 99212

== ENCOUNTER 2024-03-12 15:45 | Outpatient (AMB) | payer MEDICARE, SELFPAY ==
[2024-03-12 15:55] VITALS: BP 132/70; PULSE 58; O2SAT 97; BMI 34.2
--- NOTE | 2024-03-12 15:55 | A.OFFVIS_ITS ---
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 The patient doing well. She did have an episode in her life when she worked we had poor ventilation. While she was working that she did have episodes of cough. Denied any significant shortness of breath. Although she is not very active. She no longer works there. The patient ultimately and beginning of the year had a fall injury fracturing her right ankle and subsequently being at work about 4 months. She is now back to work but working a different place. Denies any exposure to any fumes or toxins right now. She is a nonsmoker and actually never smoke. She denied any hobbies working with any in organic dust such as silica. She did not work with any organic matter and does not have any pets at this time. She denies any mold in her home. The patient has never used any inhalers. She went to see her primary care doctor who appreciated some crackles on exam. At that point she did have a chest x- ray. I personally reviewed the x-ray demonstrating some reticular changes suggestive of interstitial lung disease. On exam she does have some fine crackles bilaterally consistent with interstitial lung disease. But clinically the patient is doing well. We did talk about further workup including pulmonary function studies and a CT scan of the chest. She is concerned about potential cost about these test. I did try to explain to her that we can try to do 1 at a time if that is easier. We also typically do blood work but we can wait to see the results of the test to see if any concerns for a progressive condition is present. Therefore, patient will undergo pulmonary function studies and hopefully a CT scan if not an x-ray will follow-up in a few months. 03/12/2024 the patient is here for a pulmonary follow-up visit. The patient has been noticing some increasing dyspnea on exertion. She did not attribute this to her pulmonary issues she does radiate she later. But now she is thinking about it more seems to be more concerned about potential symptomatic disease. The patient did undergo pulmonary function studies that I did briefly review with her. It appears that her total lung capacity down to 49% consistent with a moderate restriction concerning for moderate restrictive lung disease. She again had abnormal chest x-ray so therefore she did undergo a CT of the chest. The CT scan demonstrates significant reticular changes throughout the periphery of the lungs bilaterally right more than left without any evidence of any significant ground-glass opacities. This is suggestive more of idiopathic pulmonary fibrosis. I do not see a potential secondary cause. We talked about doing blood work to assess for connective tissue conditions and hypersensitivity pneumonitis. I also briefly mentioned biopsy of the lung but at this point I do not recommend that because of the limited changes in management and also potential complications. The patient was offered potential treatments if she would like. We talked about briefly prednisone to try to minimize some of the interstitial changes. Although the patient is very concerning skeptical about many medications. We also talked about over have a good option if there is any progression of her disease. Therefore, will go ahead and have her come back in a couple months and will do plan to do an x-ray. And also we can discuss her blood work results. In addition to that we can consider spirometer to to see there is any significant changes in her previous 1. We can also consider repeating a CT scan in the next 4-6 months to see if there is any progression to see if any point that we should start Ofev. If there is any evidence of any connective tissue disease then rheumatological consultation will be helpful. [facility] Medical History (Updated 03/15/24 @ 19:07 by Billy Zacarias MD) Pulmonary fibrosis Dyspnea Standard chest x-ray abnormal ILD (interstitial lung disease) Skin lesion of neck Surgical History History of removal of cyst Social History (Updated 03/12/24 @ 16:00 by JON Glez) Alcohol intake: never Patient Tobacco Use Status: Never used Tobacco Review of Systems Const Denies fever(s) Eyes Denies change in vision ENT Reports no additional complaints Card Denies chest pain and Reports dyspnea on exertion Resp Reports dyspnea on exertion and Denies wheezing GI Reports no additional complaints Musc Reports no additional complaints Skin/Breast Denies rash Neuro Reports no additional complaints Johann/Lymph Reports no additional complaints Aller/Immun Denies wheezing Physical Exam Vital Signs: Last Vital Signs Pulse 58 03/12/24 15:55 BP 132/70 03/12/24 15:55 Pulse Ox 97 03/12/24 15:55 Oxygen Delivery Method Room Air 03/12/24 15:55 BMI result Body Mass Index 34.2 Const General: comfortable HEENT Head: Yes atraumatic Neck Neck: Yes supple Chest Chest palpation & inspection: normal inspection of the chest Resp Effort & Inspection: normal respiratory effort Auscultation: rales bilateral Cardio Heart sounds: S1 normal heart sound present and S2 normal heart sound present GI Palpation (GI): Soft to palpation Skin General skin exam: no rashes or lesions noted Extrem General: Yes no clubbing, cyanosis or edema Results Reviewed Results Reviewed: personally reviewed CT chest +bilateral reticular changes consistent with ILD, probably IPF PFT moderate restriction Assessment & Plan Assessment & Plan (1) ILD (interstitial lung disease): Code(s): J84.9 - Interstitial pulmonary disease, unspecified Category: Medical (2) Dyspnea: Code(s): R06.00 - Dyspnea, unspecified Category: Medical Qualifiers: Dyspnea type: dyspnea on exertion Qualified Code(s): R06.09 - Other forms of dyspnea (3) Pulmonary fibrosis: Code(s): J84.10 - Pulmonary fibrosis, unspecified Category: Medical Plan bloodwork assess for secondary causes of the ILD pt declined trial of prednisone consider OFEV if evidence of progression repeat imaging in 2-4 months F/U 2-3 months Orders: Orders Cyclic Citrullinated Peptide 03/12/24 J84.9 - Interstitial pulmonary disease, unspecified Hypersensitive Pneumonitis Prf 03/12/24 J84.9 - Interstitial pulmonary disease, unspecified, R91.8 - Other nonspecific abnormal finding of lung field GRZEGORZ Reflex Titer and Pattern 03/12/24 J84.9 - Interstitial pulmonary disease, unspecified Erythrocyte Sedimentation Rate 03/12/24 J84.9 - Interstitial pulmonary disease, unspecified Scleroderma 70 Antibody 03/12/24 J84.9 - Interstitial pulmonary disease, unspecified Coding Level of Care Code Est Pt Level 5 (45481) Diagnoses ILD (interstitial lung disease) J84.9 Dyspnea on exertion R06.09 Dyspnea type: dyspnea on exertion Pulmonary fibrosis J84.10 Time Spent (min) 45
== END 2024-03-12 16:24 | disposition home or self-care (01) ==
PROVIDERS: PCP Internal Medicine; Visit Provider Hospitalist
DX: J84.9 Interstitial pulmonary disease, unspecified (principal); J84.10 Pulmonary fibrosis, unspecified
CPT/HCPCS: 99215

== ENCOUNTER 2024-09-03 15:15 | Outpatient (AMB) | payer MEDICARE, SELFPAY ==
--- NOTE | 2024-09-03 15:17 | A.OFFPC_ITS ---
Vital Signs 09/03/24 15:37 09/03/24 16:14 Height 5 ft 3 in Weight 89.811 kg BMI 35.1 BP 160/98 H 156/86 H Respiration 18 Pulse 61 Pulse Source Pulse Oximeter Temp 97.3 F Temp Source Temporal Artery Scan Pulse Oximetry (%) 97 Oxygen Delivery Method Room Air Intake Visit Reasons: Annual - see comments Inside Sales Assistant Required: No Accompanied by: Self / Same As Patient Allergies No Known Allergies Allergy (Verified 09/03/24 15:36) Medication List - Last Reconciled 09/03/24 by ARI Adams acetaminophen (Tylenol Extra Strength) 500 mg PO Q6H PRN ibuprofen 600 mg PO Q6H PRN HPI HPI Comments History of Present Illness Details 69-year-old female with history of pulmo nary fibrosis, vitamin-D deficiency, hypercholesterolemia, and obesity presents to the office today for management of chronic conditions as well as to establish care. Initially expresses displeasure with seeing a PA, offered to have the doctor come in which she refused and agrees to see this provider. Pulmonary fibrosis-had been following with Dr. Zacarias. CT scan of the lungs with contrast confirmed diagnosis. Thus far, no cause has been identified. No history of smoking, lung cancer, noxious exposures. Immunology workup negative. Additional serologies negative. She does report easy fatigability and some dyspnea on exertion. She is not interested in medications. She remains concerned about the etiology and prognosis of her condition. She would like to see a different visual stylist. Elevated blood pressure readings-no history of hypertension. Initial blood pressure 160/98, repeat 156/86. Hyperlipidemia-not on medication Vitamin-D deficiency-not on supplementation Concerns: As above Health maintenance: Last mammogram-09/2023, negative for malignancy. Last bone density scan showed osteopenia. FRAX 16.8% Last colonoscopy-no results on record ROS: General: No fevers, malaise, unintentional weight loss HEENT: No blurred vision, diplopia. No sore throat, nasal congestion, rhinorrhea, sinus pain, ear pain Cardiovascular: No chest pain, palpitations, or leg edema Respiratory: see hpi MSK: No myalgia, back pain Neuro: No headaches, weakness, paresthesias Skin: No rashes or lesions EXAM: Constitutional - Awake and Alert, No apparent distress Eyes - PERRL Cardiovascular - S1S2, RRR, No edema Respiratory - Normal lung expansion, Normal respiratory effort, No respiratory distress, crackles bilateral lower lobes Extremities - no calf tenderness bilaterally, no swelling Skin - Warm/Dry Neurological - Alert & oriented x3 Psychological - Appropriate affect [facility] Medical History (Updated 09/03/24 @ 16:35 by ARI Adams) Pulmonary fibrosis Dyspnea Standard chest x-ray abnormal ILD (interstitial lung disease) Skin lesion of neck Surgical History History of removal of cyst Social History (Updated 03/12/24 @ 16:00 by Alannah Murry Hermelindo) Alcohol intake: never Patient Tobacco Use Status: Never used Tobacco Physical exam (Primary Care) Vital Signs: Last Vital Signs Temp 97.3 F 09/03/24 15:37 Pulse 61 09/03/24 15:37 Resp 18 09/03/24 15:37 BP 160/98 H 09/03/24 15:37 Pulse Ox 97 09/03/24 15:37 Oxygen Delivery Method Room Air 09/03/24 15:37 BMI result Body Mass Index 35.1 Tobacco/Smoking Status: Tobacco use Status Patient Tobacco Use Status Never used Tobacco 09/03/24 15:19 Coding Level of Care Code New Pt Level 5 (27582) Complex EM visit Add On G2211 Diagnoses Pulmonary fibrosis J84.10 HTN (hypertension) I10 Osteopenia M85.80 Vitamin D deficiency E55.9 Hyperlipidemia E78.5 Assessment & Plan Assessment & Plan (1) Pulmonary fibrosis: Code(s): J84.10 - Pulmonary fibrosis, unspecified Category: Medical Plan: Reviewed last to pulmonology notes, CT scan of the chest, serology and immunology workup. Agree with diagnosis of pulmonary fibrosis which is discussed with the patient and she is educated on the condition. Reviewed with the patient that the etiology remains unknown. She is not interested in medications. Discussed potential prognosis. She desired new referral to pulmonology which was entered. (2) HTN (hypertension): Code(s): I10 - Essential (primary) hypertension Category: Medical Plan: Blood pressure is elevated x2. Reviewed past blood pressures which were also elevated. She is not interested in medication but then reported that she would need to think about it. We will recheck blood pressure at annual physical exam (3) Osteopenia: Code(s): M85.80 - Other specified disorders of bone density and structure, unspecified site Category: Medical Plan: FRAX score 10%, bisphosphonate therapy not indicated. Will evaluate vitamin-D levels. Weight-bearing exercise (4) Vitamin D deficiency: Code(s): E55.9 - Vitamin D deficiency, unspecified Category: Medical Plan: Vitamin-D level ordered. (5) Hyperlipidemia: Code(s): E78.5 - Hyperlipidemia, unspecified Category: Medical Plan: Lipid panel ordered. Plan Follow-up soon for annual physical exam at which time blood pressure will be rechecked. Visit initially booked for physical exam but due to extensive discussion on pulmonary fibrosis, unable to complete all components of annual physical. She is uncertain about antihypertensive agents at this time but should have blood pressure rechecked. Labs are ordered as below. She was referred to another visual stylist. Time spent with patient 60 minutes, review of chart/documentation 10 minutes Orders: Orders Basic Metabolic Panel Today Z00.00 - Encounter for general adult medical examination without abnormal findings Complete Blood Count Auto Diff Today Z00.00 - Encounter for general adult medical examination without abnormal findings Lipid Panel Today Z00.00 - Encounter for general adult medical examination without abnormal findings Liver Panel Today Z00.00 - Encounter for general adult medical examination without abnormal findings Vitamin D 25-OH Total Today Z00.00 - Encounter for general adult medical examination without abnormal findings Referrals Pulmonology Referral J84.10 - Pulmonary fibrosis, unspecified
[2024-09-03 15:37] VITALS: BP 160/98; PULSE 61; RESP 18; TEMP 36.3; O2SAT 97; BMI 35.1
[2024-09-03 16:14] VITALS: BP 156/86
== END 2024-09-03 16:21 | disposition home or self-care (01) ==
PROVIDERS: PCP Internal Medicine; Visit Provider Physician Assistant
DX: J84.10 Pulmonary fibrosis, unspecified (principal); I10 Essential (primary) hypertension; M85.80 Other specified disorders of bone density and structure, unspecified site; E55.9 Vitamin D deficiency, unspecified; E78.5 Hyperlipidemia, unspecified

== ENCOUNTER → 2024-09-03 15:15 | Outpatient (BNVA) | payer MEDICARE, SELFPAY | PROVIDERS: PCP Internal Medicine; Visit Provider Physician Assistant | DX: Z76.89 Persons encountering health services in other specified circumstances (principal); J84.10 Pulmonary fibrosis, unspecified; I10 Essential (primary) hypertension; M85.80 Other specified disorders of bone density and structure, unspecified site; E55.9 Vitamin D deficiency, unspecified; E78.5 Hyperlipidemia, unspecified | CPT/HCPCS: 99202 ==